=== PATIENT | female | born 1960 | race Caucasian/White ===

== ENCOUNTER 2019-03-19 10:57 | Day surgery (SDC) | payer MEDICARE, OTHER ==
[2019-03-19] MEDS ORDERED: PROPOFOL INJ 200 MG/20 ML VIAL IV ONE (13:00)
--- NOTE | 2019-03-19 14:42 | Operative Report ---
Operative Report DATE OF SURGERY: 03/19/19 Operative Report: The risk, benefits and alternatives of the procedure including the risk of bleeding, perforation requiring surgery have been explained to the patient in detail and informed consent has been obtained. Patient is placed in a left, lateral decubital position. Timeout was called. Propofol medication is administered. Rectal examination is done which did not reveal any masses, tears or fissures. An Olympus videoscope was introduced into the patient's rectum. Scope was then carefully advanced all the way to the cecum. The cecum was identified by the usual anatomical landmarks including the ileocecal valve as well as the appendiceal office. Photodocumentation is obtained. Scope was then sequentially pulled back via the various segments of the colon including the ascending colon, hepatic flexure, transverse colon, splenic flexure, descending colon finding to the rectosigmoid portions of the colon. Prep is not adequate. Retroflexion maneuver is performed. The risks benefits and alternatives of the procedure explained to the patient in detail and informed consent is obtained.A GIF Olympus video scope was inserted into the patient's mouth and hypopharynx, the esophagus is identified intubated and insufflated, the scope was then advanced through the esophagus stomach and duodenum, retroflexion maneuver is done, the esophagus stomach and first and second portions of the duodenum examined PREOPERATIVE DIAGNOSIS: Epigastric pain, colorectal cancer screening POSTOPERATIVE DIAGNOSIS: Inadequate prep of the colon. Right colon inflammation status post biopsy. Internal hemorrhoids. Gastric ulcer status post biopsy OPERATION: Colonoscopy with biopsy. EGD with biopsy SURGEON: ANDREA GALLARDO ANESTHESIA: LMAC TISSUE REMOVED OR ALTERED: As noted above. COMPLICATIONS: None. ESTIMATED BLOOD LOSS: None. INTRAOPERATIVE FINDINGS: As noted above. PROCEDURE: Patient tolerated the procedure well. No immediate postprocedure complications are noted. Patient is discharged in good condition. Discharge date 03/19/2019. Discharge diet: Regular. Discharge activity: Regular. 2 to 3-week follow-up to discuss findings. Patient is instructed to call the office or proceed to the emergency room should there be any further problems or questions. Wait on the pathology. Since there is an inadequate prep would consider 5-year surveillance colonoscopy.
[2019-03-19 15:27] VITALS: BP 145/88
== END 2019-03-19 14:50 | disposition home or self-care (01) ==
LOC: OROUT 10:57
PROVIDERS: ATTEND Internal Medicine Gastroenterology
DX: Z12.11 Encounter for screening for malignant neoplasm of colon (principal); K52.9 Noninfective gastroenteritis and colitis, unspecified; K29.50 Unspecified chronic gastritis without bleeding; E78.5 Hyperlipidemia, unspecified; I10 Essential (primary) hypertension; K21.9 Gastro-esophageal reflux disease without esophagitis; E78.00 Pure hypercholesterolemia, unspecified; Z79.899 Other long term (current) drug therapy
CPT/HCPCS: 43239; 45380; 88305 ×2; 00813; J2704; 813

== ENCOUNTER 2019-05-06 06:20 | Emergency (ER) | payer MEDICARE ==
[2019-05-06 07:00] LABS: ABSOLUTE BASOPHILS # (AUTO) 0.1 10^3/uL (0.0-0.2); ABSOLUTE EOSINOPHILS # (AUTO) 0.1 10^3/uL (0.0-0.6); ABSOLUTE LYMPHOCYTES (AUTO) 1.3 10^3/uL (0.5-4.7); ABSOLUTE MONOCYTES (AUTO) 0.7 10^3/uL (0.1-1.4); BASOPHILS % (AUTO) 1.3 % (0-2); EOSINOPHILS % (AUTO) 0.9 % (0-6); HEMOGLOBIN 12.1 g/dL (12.0-15.5); LYMPHOCYTES % (AUTO) 15.8 % (13-45); MEAN CORPUSCULAR HEMOGLOBIN 25.8 pg (27.0-33.4); MEAN CORPUSCULAR HGB CONC 32.7 g/dL (32.0-36.0); MEAN CORPUSCULAR VOLUME 79 fl (80-97); PLATELET COUNT 468 10^3/uL (150-450); RED CELL DISTRIBUTION WIDTH 15.7 % (11.5-14.0); TOTAL CELLS COUNTED % (AUTO) 100 %; WHITE BLOOD COUNT 8.2 10^3/uL (4.0-10.5)
[2019-05-06 07:08] LABS: PROTHROMBIN TIME 12.1 SEC (11.4-15.4)
[2019-05-06 07:13] LABS: ALBUMIN 4.2 g/dL (3.5-5.0); ALKALINE PHOSPHATASE 54 U/L (38-126); ANION GAP 11 (5-19); ASPARTATE AMINO TRANSFERASE 20 U/L (14-36); BILIRUBIN,DIRECT 0.3 mg/dL (0.0-0.4); BILIRUBIN,TOTAL 0.3 mg/dL (0.2-1.3); BLOOD UREA NITROGEN 10 mg/dL (7-20); CALCIUM 9.6 mg/dL (8.4-10.2); CARBON DIOXIDE 29 mmol/L (22-30); CHLORIDE 98 mmol/L (98-107); CREATINE KINASE 99 U/L (30-135); GLUCOSE 114 mg/dL (75-110); POTASSIUM 3.6 mmol/L (3.6-5.0); TOTAL PROTEIN 7.8 g/dL (6.3-8.2)
[2019-05-06 07:31] LABS: CREATINE KINASE MB 1.26 ng/mL (<4.55); TROPONIN I < 0.012 ng/mL
[2019-05-06 09:01] LABS: APPEARANCE,URINE CLEAR; BILIRUBIN,URINE NEGATIVE (NEGATIVE); COLOR,URINE STRAW; GLUCOSE, URINE NEGATIVE (NEGATIVE); KETONES,URINE NEGATIVE (NEGATIVE); LEUKOCYTE ESTERASE,URINE NEGATIVE (NEGATIVE); NITRITE,URINE NEGATIVE (NEGATIVE); PROTEIN,URINE NEGATIVE (NEGATIVE); URINE SPECIFIC GRAVITY 1.005; UROBILINOGEN,URINE NEGATIVE mg/dL (<2.0)
[2019-05-06] MEDS ORDERED: METOCLOPRAMIDE HCL ORAL SOLN 10 MG/10 ML UDCUP PO ONE (09:34)
[2019-05-06] MEDS ORDERED: LIDOCAINE 2% VISCOUS SOLN 15 ML UDCUP PO ONE (09:34)
[2019-05-06] MEDS ORDERED: MAG HYDROX/AL HYDROX/SIMETH SUSP 30 ML UDCUP PO ONE (09:34)
--- NOTE | 2019-05-06 11:20 | RADIOLOGY REPORT (SQ) ---
EXAM DESCRIPTION: CT ABD/PELVIS WITH IV ONLY COMPLETED DATE/TIME: 05/06/2019 10:58 am REASON FOR STUDY: abd pain/epigastric COMPARISON: None. TECHNIQUE: CT scan of the abdomen and pelvis performed using helical scanning technique with dynamic intravenous contrast injection. No oral contrast. Images reviewed with lung, soft tissue, and bone windows. Reconstructed coronal and sagittal MPR images reviewed. Delayed images for evaluation of the urinary system also acquired. All images stored on PACS. All CT scanners at this facility use dose modulation, iterative reconstruction, and/or weight based d osing when appropriate to reduce radiation dose to as low as reasonably achievable (ALARA). [facility]: Dose Right [facility]: CareDose [facility]: Dose Right [facility]: Teradose 4D [facility]: Carebase CONTRAST TYPE AND DOSE: contrast/concentration: Isovue 350.00 mg/ml; Total Contrast Delivered: 96.0 ml; Total Saline Delivered: 54.4 ml RENAL FUNCTION: BUN 10, creatinine 0.43 RADIATION DOSE: CT Rad equipment meets quality standard of care and radiation dose reduction techniq ues were employed. CTDIvol: 11.0 - 14.7 mGy. DLP: 1279 mGy-cm.. LIMITATIONS: None. FINDINGS: LOWER CHEST: No significant findings. No nodules or infiltrates. There is a small to mode rate size hiatal hernia. LIVER: Normal size. No masses. No dilated ducts. SPLEEN: Normal size. No focal lesions. PANCREAS: No masses. No significant calcifications. No adjacent inflammation or peripancreatic fluid collections. Pancreatic duct not dilated. GALLBLADDER: No identified stones by CT criteria. No inflammatory changes to suggest cholecystitis. ADRENAL GLANDS: No significant masses or asymmetry. RIGHT KIDNEY AND URETER: No solid masses. No significant calcifications. No hydronephrosis or hyd roureter. LEFT KIDNEY AND URETER: No solid masses. No significant calcifications. No hydronephrosis or hydr oureter. AORTA AND VESSELS: No aneurysm. No dissection. Renal arteries, SMA, celiac without stenosis. RETROPERITONEUM: No retroperitoneal adenopathy, hemorrhage or masses. BOWEL AND PERITONEAL CAVITY: There is an unusual appearance of the floor channel and proximal duodenu m. This may be due to prior gastric surgery. Surgical clips are seen in this area. Focal proximal duodenum diverticulum is a possibility. There is no surrounding inflammation. APPENDIX: Not visualized. PELVIS: No mass. No free fluid. Normal bladder. ABDOMINAL WALL: No masses. No hernias. BONES: No significant or acute findings. OTHER: No other significant finding. IMPRESSION: Unusual appearance of the gastric outlet and proximal duodenum as described. The patien t has had some type of gastric surgery with clips noted. Duodenal diverticulum cannot be excluded. TECHNICAL DOCUMENTATION: JOB ID: [id number] Quality ID # [id number]: Final reports with documentation of one or more dose reduction techniques (e.g., Au tomated exposure control, adjustment of the mA and/or kV according to patient size, use of iterative reconstruction technique) 2010 [employer]- All Rights Reserved Reading location - IP/workstation name: [email or web address]
--- NOTE | 2019-05-06 12:06 | ER Document Report ---
ED General - General Chief Complaint: Palpitations Stated Complaint: DIZZINESS,PALPITATIONS,GENERAL WEAKNESS Time Seen by Provider: 05/06/19 08:23 Primary Care Provider: RUDOLPH MANN MD [Primary Care Provider] - Follow up as needed Mode of Arrival: Ambulatory Information source: Patient TRAVEL OUTSIDE OF THE [place] IN LAST 30 DAYS: No - HPI Notes: Patient presents complaining of epigastric pain and palpitations. She states this is been going on for several days. She is not awaiting the makes it better or worse. She states she was recently diagnosed with a gastric ulcer and started on some antacid medications but does not feel that this is helping. She states prior to having the ulcer treated she was having some black stool but has not had any black stool since then. No blood in her stool either. She is also had some lightheadedness and dizziness over the last several days. This lightheadedness and dizziness is worse with exertion and better with rest. The epigastric pain does not radiate. It is a burning and sharp sensation. No significant chest pain. No significant shortness of breath. The pain and palpitations have been intermittent. They have been mild to moderate in intensity. - Related Data Allergies/Adverse Reactions: No Known Allergies Allergy (Verified 09/01/14 16:12) Home Medications: OXYCODONE, hctz,LISINOPRIL, SIMVASTATIN,DEXILANT,AMLODIPINE,DICLOFENAC Past Medical History - General Information source: Patient - Social History Smoking Status: Never Smoker Frequency of alcohol use: None Drug Abuse: None Family History: Reviewed & Not Pertinent Patient has suicidal ideation: No Patient has homicidal ideation: No - Past Medical History Cardiac Medical History: Reports: Hx Hypercholesterolemia, Hx Hypertension - on meds Denies: Hx Coronary Artery Disease, Hx Heart Attack Pulmonary Medical History: Denies: Hx Asthma, Hx Bronchitis, Hx COPD, Hx Pneumonia Neurological Medical History: Denies: Hx Cerebrovascular Accident, Hx Seizures Musculoskeletal Medical History: Denies Hx Arthritis - Immunizations Immunizations up to date: Yes Hx Diphtheria, Pertussis, Tetanus Vaccination: Yes Review of Systems - Review of Systems Constitutional: Malaise, Weakness. denies: Chills, Fever Cardiovascular: Palpitations. denies: Chest pain Respiratory: denies: Cough, Short of breath -: Yes All other systems reviewed and negative Physical Exam - Vital signs Vitals: Pulse Ox 98 05/06/19 06:28 Interpretation: Normal - General General appearance: Appears well, Alert - HEENT Head: Normocephalic, Atraumatic Eyes: Normal Pupils: PERRL - Respiratory Respiratory status: No respiratory distress Chest status: Nontender Breath sounds: Normal Chest palpation: Normal - Cardiovascular Rhythm: Regular Heart sounds: Normal auscultation Murmur: No - Abdominal Inspection: Normal Distension: No distension Bowel sounds: Normal Tenderness: Tender - Mildly tender in the epigastric area no rebound or guarding. Organomegaly: No organomegaly - Back Back: Normal, Nontender - Extremities General upper extremity: Normal inspection, Nontender, Normal color, Normal ROM, Normal temperature General lower extremity: Normal inspection, Nontender, Normal color, Normal ROM, Normal temperature, Normal weight bearing. No: Nikunj's sign - Neurological Neuro grossly intact: Yes Cognition: Normal Orientation: AAOx4 [place] Coma Scale Eye Opening: Spontaneous [place] Coma Scale Verbal: Oriented [place] Coma Scale Motor: Obeys Commands [place] Coma Scale Total: 15 Speech: Normal Motor strength normal: LUE, RUE, LLE, RLE Sensory: Normal - Psychological Associated symptoms: Normal affect, Normal mood - Skin Skin Temperature: Warm Skin Moisture: Dry Skin Color: Normal Course - Vital Signs Vital signs: Temp Pulse Resp BP Pulse Ox 16 160/86 H 96 05/06/19 11:00 05/06/19 10:21 05/06/19 11:00 - Laboratory Result Diagrams: 05/06/19 06:35 05/06/19 06:35 Laboratory results interpreted by me: 05/06/19 05/06/19 05/06/19 06:35 06:35 08:50 MCV 79 L MCH 25.8 L RDW 15.7 H Plt Count 468 H Creatinine 0.43 L Glucose 114 H Urine Blood SMALL H - Diagnostic Test Radiology reviewed: Image reviewed, Reports reviewed - EKG Interpretation by Me EKG shows normal: Sinus rhythm Rate: Normal - 82 Rhythm: NSR [place]/QRS: No: Right axis deviation, Left axis deviation Discharge - Discharge Clinical Impression: Epigastric pain, Palpitations Condition: Stable Disposition: HOME, SELF-CARE Instructions: Palpitations (Irregular or Rapid Heartrate) ([facility]), Abdominal Pain ([facility]) Additional Instructions: Please call Dr. Booker's office as soon as possible to arrange follow-up Prescriptions: Sucralfate [Carafate Susp 1 Gm/10 Ml Udcup] 1 gm PO QID #200 ml Referrals: YVES BOOKER MD [ACTIVE STAFF] - Follow up tomorrow
[2019-05-06 12:14] VITALS: BP 152/85
--- NOTE | 2019-05-06 17:29 | EKG REPORT ---
SEVERITY:- NORMAL ECG - SINUS RHYTHM : Confirmed by: Norma Martinez MD 06-May-2019 17:28:14
== END 2019-05-06 12:27 | disposition home or self-care (01) ==
LOC: ER 06:20
DX: R10.13 Epigastric pain (principal); R00.2 Palpitations; R42 Dizziness and giddiness; R53.1 Weakness; R19.5 Other fecal abnormalities; Z79.899 Other long term (current) drug therapy; I10 Essential (primary) hypertension
CPT/HCPCS: 93005; 99285; 36415; 82553; 82550; 85025; 85610; 80053; 81001; 84484; 74177; 93010; J3490; A9270 ×2

== ENCOUNTER 2019-05-18 09:52 | Day surgery (SDC) | payer MEDICARE ==
[~2019-05-18 09:52] MED LIST: PROPOFOL INJ 200 MG/20 ML VIAL IV ONE
[2019-05-18 11:26] VITALS: BP 142/68
--- NOTE | 2019-05-18 12:00 | Operative Report ---
Operative Report DATE OF SURGERY: 05/18/19 Operative Report: The risks benefits and alternatives of the procedure explained to the patient in detail and informed consent is obtained.A GIF Olympus video scope was inserted into the patient's mouth and hypopharynx ,the esophagus is identified intubated and insufflated ,the scope was then advanced through the esophagus stomach and duodenum, retroflexion maneuver is done ,the esophagus stomach and first and second portions of the duodenum examined PREOPERATIVE DIAGNOSIS: Follow-up gastric ulcer POSTOPERATIVE DIAGNOSIS: Persistent gastric ulcer status post biopsy. There does not appear to be any gastric outlet obstruction. However there is retained food in the stomach from last night OPERATION: EGD with biopsy SURGEON: ANDREA GALLARDO ANESTHESIA: LMAC TISSUE REMOVED OR ALTERED: As noted above COMPLICATIONS: None. ESTIMATED BLOOD LOSS: None. INTRAOPERATIVE FINDINGS: As noted above. PROCEDURE: Patient tolerated the procedure well. No immediate postprocedure complications are noted. Patient is discharged in good condition. Discharge date 05/18/2019. Discharge diet: Regular. Discharge activity: Regular. 2 to 3-week follow-up to discuss findings. Patient is instructed to call the office or proceed to the emergency room should there be any further problems or questions. Wait on the pathology.
== END 2019-05-18 11:26 | disposition home or self-care (01) ==
LOC: END 09:52
PROVIDERS: ATTEND Internal Medicine Gastroenterology
DX: K29.50 Unspecified chronic gastritis without bleeding (principal); K44.9 Diaphragmatic hernia without obstruction or gangrene; Z09 Encounter for follow-up examination after completed treatment for conditions other than malignant neoplasm; Z87.11 Personal history of peptic ulcer disease; T18.2XXA Foreign body in stomach, initial encounter; X58.XXXA Exposure to other specified factors, initial encounter; E78.5 Hyperlipidemia, unspecified; K21.9 Gastro-esophageal reflux disease without esophagitis; I10 Essential (primary) hypertension; E78.00 Pure hypercholesterolemia, unspecified; Z79.899 Other long term (current) drug therapy
CPT/HCPCS: 43239; 88342 ×2; 88305 ×2; 00731; J2704; 731

== ENCOUNTER → 2019-08-21 | Outpatient (CLI) | payer MEDICARE ==
--- NOTE | 2019-08-21 13:40 | WOMENS IMAGING REPORT ---
EXAM DESCRIPTION: 3D SCREENING MAMMO BILAT IMAGES COMPLETED DATE/TIME: 08/21/2019 10:11 am REASON FOR STUDY: Z12.31 SCREENING MAMMO Z12.31 ENCNTR SCREEN MAMMOGRAM FOR MALIGNANT NEOPLASM OF B RE COMPARISON: None. EXAM PARAMETERS: Standard craniocaudal and mediolateral oblique views of each breast recorded using digital acquisition and breast tomosynthesis. Read with the assistance of CAD. .[facility] - R2 Sorting Supervisor Version 9.2 LIMITATIONS: None. FINDINGS: Findings present which are benign by mammographic criteria. No suspicious masses, calcific ations or architectural distortion. Pertinent benign findings: Benign calcifications. Benign mammographic findings may include one or more of the following: Smooth masses, popcorn/rim/coa rse calcifications, asymmetries, post-procedure changes, and lesions with long-standing stability. IMPRESSION: BENIGN MAMMOGRAPHIC FINDINGS. BIRADS 2 BREAST DENSITY: b. There are scattered areas of fibroglandular density. BIRAD: ASSESSMENT: 2 BENIGN FINDING(S) RECOMMENDATION: ROUTINE SCREENING COMMENT: The patient has been notified of the results by letter per [facility] requirements. Additional no tification policies are in place for contacting patient with suspicious or incomplete findings. Quality ID #[id number]: The [employer] recommends an annual screening mammogram for women aged 40 years or over. This facility utilizes a reminder system to ensure that all patients receive reminder letters, and/or direct phone calls for appointments. This includes reminders for routine scr eening mammograms, diagnostic mammograms, or other Breast Imaging Interventions when appropriate. Th is patient will be placed in the appropriate reminder system. TECHNICAL DOCUMENTATION: FINDING NUMBER: (1) ASSESSMENT: (1) JOB ID: [id number] 2010 [employer]- All Rights Reserved Reading location - IP/workstation name: [email or web address]
== END ==
LOC: WI 10:11
PROVIDERS: ATTEND Internal Medicine
DX: Z12.31 Encounter for screening mammogram for malignant neoplasm of breast (principal)
CPT/HCPCS: 77063; 77067